=== PATIENT | male | born 1985 | race Caucasian/White ===

== ENCOUNTER 2016-07-02 01:41 | Observation (INO) | payer SELFPAY ==
[~2016-07-02] VITALS: Ht 188 cm; Wt 138.0 kg
[2016-07-02 02:16] LABS: HEMATOCRIT 41.2 % (38.0-50.0); MCH 33.2 PG (29.0-34.0); MCHC 36.2 G/DL (30.0-36.0); MCV 91.8 FL (86-99); PLATELET COUNT 255 K/uL (156-360); RBC DIS.WIDTH-CV 11.7 % (11.8-14.6); RBC DIS.WIDTH-SD 39.3 % (39-53); RED BLOOD COUNT 4.49 M/uL (4.00-5.50); WHITE BLOOD COUNT 6.8 K/uL (4.1-10.2)
[2016-07-02 02:30] LABS: CHLORIDE 108 mEq/L (99-109); POTASSIUM 3.7 mEq/L (3.7-5.4); SODIUM 141 mEq/L (136-147)
[2016-07-02 02:33] LABS: GLUCOSE 107 mg/dL (70-99)
[2016-07-02 02:34] LABS: ANION GAP 11 MEQ/L (2-14); TOTAL BILIRUBIN 0.7 mg/dL (0.0-1.0)
[2016-07-02 02:36] LABS: ALKALINE PHOSPHATASE 52 IU/L (3-129); GFR ESTIMATE (CALCULATED) > 59 mL/min/
[2016-07-02 02:37] LABS: UREA NITROGEN (BUN) 10 mg/dL (9-23)
[2016-07-02 02:40] LABS: LIPASE 41 U/L (1.0-51.0)
[2016-07-02] MEDS ORDERED: ZOFRAN4 MG PO (04:17)
[2016-07-02 04:34] VITALS: BP 132/92
== END 2016-07-02 04:15 | disposition left against medical advice (07) ==
LOC: EDBD 01:41 → EME 01:41 → EDOF 03:51
DX: R10.11 Right upper quadrant pain (principal); K57.32 Diverticulitis of large intestine without perforation or abscess without bleeding; R11.0 Nausea; Z87.891 Personal history of nicotine dependence
CPT/HCPCS: 74176; 80053; 81003; 83690; 85027; 99281; 99285; G0378; J2270; J2405; J3010; J7030; J7050